=== PATIENT | male | born 1980 | race African-American/Black ===

== ENCOUNTER 2022-01-10 10:36 | Emergency (ER) | payer BC, SELFPAY ==
[2022-01-10 10:50] VITALS: BP 123/84; PULSE 84; RESP 20; TEMP 35.8; O2SAT 100
--- NOTE | 2022-01-10 11:29 | ED.GENADULT ---
HPI - General Adult General Chief complaint: Skin/Abscess/Foreign Body Stated complaint: Insect Bite Source: patient Mode of arrival: ambulatory Limitations: no limitations History of Present Illness HPI narrative: Patient presents for evaluation of two raised erythematous lesions to the abdomen for the last 4 days. He believes that he may have experienced spider bites in the areas while sleeping. He woke from sleep 2 days ago with some sweats. He squeezed both areas in an attempt to drain them. No objective fever, chills, nausea, vomiting. He is diabetic but states that his last A1c was in the 4's. He does not check his own blood sugar. He is taking ibuprofen for pain which seems to help. He does smoke half a pack per day. No additional complaints or concerns. Related Data Allergies Allergy/AdvReac Type Severity Reaction Status Date / Time metformin AdvReac Mild diarrhea Verified 01/10/22 10:41 Review of Systems Review of Systems: CONSTITUTIONAL: Denies fever, chills, or sweats. EYES: Denies visual changes, redness, or discharge. ENT: Denies rhinorrhea, congestion, sore throat, or otalgia. CARDIOVASCULAR: Denies chest pain, palpitations, or edema. RESPIRATORY: Denies cough or dyspnea. GASTROINTESTINAL: Denies abdominal pain, nausea, vomiting, or diarrhea. GENITOURINARY: Denies dysuria or hematuria. SKIN: Reports raised erythematous wounds to the abdomen MUSCULOSKELETAL: Denies back pain, joint pain, or myalgia. NEUROLOGIC: Denies headache, numbness, dizziness, or weakness. PSYCHIATRIC: Denies anxiety or depression. [facility] Past Medical History Medical History Diabetes Surgical History Surgical History History of oral surgery Family History Family History Mother Diabetes mellitus Father Diabetes mellitus Grandparent Diabetes mellitus Heart disease Social History Social History Smoking packs per day: 0.5 Smoking cigarettes per day: 10.0 Years smoked: 30 Smoking pack-years: 15.00 Smoking status: Current every day smoker Tobacco type: cigarettes Second hand tobacco smoke exposure: Yes Alcohol intake: current Drinks per week: 1 Substance use: current Substance use type: marijuana Gender identity (if verbalized by the patient): Male Sexual Orientation (if Verbalized by the Patient): Lesbian, Rey, or Homosexual Spiritual care concerns: No Agree to blood products: Yes Exam Narrative: GENERAL: Well-appearing, well-nourished, and in no acute distress. HEAD: Normocephalic, atraumatic. EYES: PERRLA and EOMI. ENT: Nares clear, no rhinorrhea or epistaxis. Mucous membranes moist. Oropharynx without tonsillar hypertrophy exudate or other lesions. Bilateral TMs pearly aguilar nonbulging NECK: Supple. No adenopathy or masses. No carotid bruits or JVD CHEST: Clear to auscultation. No respiratory distress. No wheezes rales or rhonchi HEART: Regular rate and rhythm. No murmur heard. Normal peripheral pulses. ABDOMEN: Soft, nontender, nondistended, normal active bowel sounds. EXTREMITIES: Normal range of motion. No edema. SKIN: there are(2) approximately 1.5 cm raised erythematous indurated wounds to abdomen NEURO: No focal deficits. Alert and oriented x3. PSYCH: Normal mood and affect. Course Course Emergency Course: this is a 41-year-old male who presented for evaluation of 2 wounds the abdomen. There does not appear to be drainable fluid collections and either area. Will treat with Bactrim and Keflex. Advised on wound care. Do not squeeze affected areas. Monitor blood sugar at home. Go to the ER for systemic signs of infection. Patient is in agreement with plan of care. Level of Care: Express Care Visit Vital Signs Vital signs: Vit
== END 2022-01-10 11:42 | disposition home or self-care (01) ==
PROVIDERS: Emergency Provider Nurse Practitioner; PCP Family Medicine Adolescent Medicine
DX: L08.9 Local infection of the skin and subcutaneous tissue, unspecified (principal); F17.210 Nicotine dependence, cigarettes, uncomplicated; E11.9 Type 2 diabetes mellitus without complications; F12.90 Cannabis use, unspecified, uncomplicated
CPT/HCPCS: 99213; G0463

== ENCOUNTER 2022-02-23 11:17 | Emergency (ER) | payer BC, SELFPAY ==
[2022-02-23 11:28] VITALS: BP 128/77; PULSE 78; RESP 16; TEMP 36.5; O2SAT 100
--- NOTE | 2022-02-23 11:35 | ED.SKABFB ---
HPI - Skin/Abscess/Foreign Bdy General Chief complaint: Unspecified Stated complaint: lump under neck Time Seen by Provider: 02/23/22 11:40 Source: patient and RN notes reviewed Mode of arrival: ambulatory Limitations: dementia History of Present Illness HPI narrative: 41-year-old male presents concern for an abscess to the left side of his neck and his merlos area. He reports he has been having history of small bumps where he shaves recently, this area continued to get larger and is tender. Reports he has been using warm compresses without relief. Reports he has been able to squeeze a small amount of pus from it. He denies any radiating pain, fever, aches, chills, malaise MD complaint: abscess/boil Related Data Allergies Allergy/AdvReac Type Severity Reaction Status Date / Time metformin AdvReac Mild diarrhea Verified 02/23/22 11:22 Review of Systems Review of Systems: CONSTITUTIONAL: Denies malaise, chills, sweats, or fever. EYES: Denies redness, or discharge. ENT: Denies rhinorrhea, congestion, swollen lips, swollen tongue CARDIOVASCULAR: Denies chest pain, palpitations, or edema. RESPIRATORY: Denies cough or dyspnea. GASTROINTESTINAL: Denies abdominal pain, nausea, vomiting SKIN: Reports tender boil like area to his left back with small amount of purulence drainage. Denies vesicles, bullae, numbness, pain beyond proportion MUSCULOSKELETAL: Denies joint pain or myalgia. NEUROLOGIC: Denies headache. All systems reviewed & are unremarkable except as noted in HPI and below PMFSH Past Medical History Medical History (Updated 02/23/22 @ 12:04 by Brigid Romero NP) Diabetes Surgical History Surgical History History of oral surgery Family History Family History Mother Diabetes mellitus Father Diabetes mellitus Grandparent Diabetes mellitus Heart disease Social History Social History Smoking packs per day: 0.5 Smoking cigarettes per day: 10.0 Years smoked: 30 Smoking pack-years: 15.00 Smoking status: Current every day smoker Tobacco type: cigarettes Second hand tobacco smoke exposure: Yes Alcohol intake: current Drinks per week: 1 Substance use: current Substance use type: marijuana Gender identity (if verbalized by the patient): Male Sexual Orientation (if Verbalized by the Patient): Lesbian, Rey, or Homosexual Spiritual care concerns: No Agree to blood products: Yes Comments At time of signature, agree with nursing past medical, surgical, social and family history. There is no relevant family history pertinent to the presenting complaint Exam Narrative: GENERAL: Well-appearing, well-nourished, and in no acute distress. HEAD: Normocephalic, atraumatic. EYES: PERRLA, conjunctivae clear ENT: Mucous membranes moist. NECK: Supple. No lymphadenopathy CHEST: Clear to auscultation. No respiratory distress. HEART: Regular rate and rhythm. SKIN: Warm, dry. Approximately 2 cm in diameter Raised tender erythematous area warmth with sharp margins noted to the left neck inside the merlos area. No vesicles, bullae, necrosis, ecchymosis, crepitus noted. NEURO: Alert and oriented x3. PSYCH: Normal mood and affect Course Course Emergency Course: Patient is aware of diagnosis, understands and agrees to treatment plan. Anticipatory guidance given. Patient agrees to follow-up as directed and is aware of reasons to seek care at the emergency department. Portions of this record may have been created with voice recognition software Level of Care: Express Care Visit Vital Signs Vital signs: Vital Signs Temperature 97.7 F 02/23/22 11:28 Pulse Rate 78 02/23/22 11:28 Respiratory Rate 16 02/23/22 11:28 Blood Pressure 128/77 02/23/22 11:28 Pulse Oximetry 100 02/23/22 11:28 Oxygen Delivery R
== END 2022-02-23 12:18 | disposition home or self-care (01) ==
PROVIDERS: Emergency Provider Nurse Practitioner; PCP Family Medicine Adolescent Medicine
DX: L02.12 Furuncle of neck (principal); B95.62 Methicillin resistant Staphylococcus aureus infection as the cause of diseases classified elsewhere; F17.210 Nicotine dependence, cigarettes, uncomplicated; E11.9 Type 2 diabetes mellitus without complications; F12.90 Cannabis use, unspecified, uncomplicated
CPT/HCPCS: 10060; 87070; 87075; 87076; 87147; 87181; 87186; 87205; 99213; G0463